=== PATIENT | male | born 1945 ===

== ENCOUNTER 2022-03-31 07:04 | Day surgery (SDC) | payer OTHER ==
[~2022-03-31] VITALS: Ht 170.2 cm; Wt 64.4 kg
[~2022-03-31 07:04] MED LIST: DULOXETINE HCL40 MG PO; FLEXERIL10 MG PO; GABAPENTIN100 M2 PO; HYDROCHLOROTHIA25 MG PO; KETO10TA2 PO; SYNTHROID50 MCG PO; UROXATRAL10 MG PO; ZESTRIL2.5 MG PO; ZIDOVUDINE100 MG PO
== END 2022-03-31 12:40 | disposition home or self-care (01) ==
LOC: CIR.AMB 07:04
PROVIDERS: ATTEND Anesthesiology Pain Medicine
DX: M48.061 Spinal stenosis, lumbar region without neurogenic claudication (principal); I10 Essential (primary) hypertension; E03.9 Hypothyroidism, unspecified; Z86.16 Personal history of COVID-19

== ENCOUNTER 2022-04-24 07:12 | Outpatient (CLI) | payer OTHER | END 2022-04-24 07:20 | disposition home or self-care (01) | LOC: TOM 07:12 | PROVIDERS: ATTEND Internal Medicine Gastroenterology | DX: R19.5 Other fecal abnormalities (principal); K63.5 Polyp of colon; K56.601 Complete intestinal obstruction, unspecified as to cause ==